=== PATIENT | female | born 1950 | race Caucasian/White ===

== ENCOUNTER 2018-08-05 14:22 | Inpatient (IN) | payer OTHER, MEDICARE ==
--- NOTE | 2018-08-05 15:30 | EDPHY ---
H & P Time Seen by Provider: 08/05/18 15:11 HPI/ROS: CHIEF COMPLAINT: abdominal pain, bloating, rectal bleeding HISTORY OF PRESENT ILLNESS: The patient is a 68-year-old female with a history of fibromyalgia, irritable bowel syndrome and celiac disease who presents emergency department with abdominal bloating and pain. Patient states she has been doing well on a special diet for the past 2 and half years. Last the patient had an MRI for facial pain. She was diagnosed with a "brain tumor. " She saw Dr. Murrell today and is scheduled for surgery next week. The patient feels that the a gadolinium on the MRI imaging caused her to have an upset bowel. Her symptoms started immediately after receiving the MRI evaluation. She describes moderate abdominal cramping. She has had bright red blood in the toilet and in her underwear. Patient denies fevers or chills. No nausea or vomiting. Patient states she is certain that the blood is from her rectum and not her vagina. REVIEW OF SYSTEMS: 10 systems were reveiwed and are negative with the exception of the elements mentioned in the history of present illness. Past Medical/Surgical History: Includes fibromyalgia, hypertension, migraine, celiac disease, irritable bowel syndrome Past surgical history: Endometrial ablation, orthopedic surgery Social history: Patient is . She does not smoke. Smoking Status: Never smoked Physical Exam: Vitals noted. 123/85, 110, 16, 97% on room air. 36.8 GENERAL: Well-appearing, in no acute distress, alert. HEENT: Eyes normal to inspection, normal pharynx, no signs of dehydration. NECK: Normal, supple. RESPIRATORY: Clear to auscultation bilaterally, no rales, rhonchi or wheezing. CVS: Regular rate and rhythm, no rubs, murmurs, or gallops. ABDOMEN: Soft, nontender, nondistended, no organomegaly. Benign BACK: Normal to inspection, no CVA tenderness. SKIN: Normal color, no rash, warm, dry. No pallor. EXTREMITIES: No pedal edema, no calf tenderness, no joint swelling. NEURO/PSYCH: Alert and oriented, normal mood and affect, normal motor sensory exam. Constitutional: Initial Vital Signs Temperature (C) 36.8 C 08/05/18 14:37 Heart Rate 110 H 08/05/18 14:37 Respiratory Rate 16 08/05/18 14:37 Blood Pressure 123/85 H 08/05/18 14:37 O2 Sat (%) 97 08/05/18 14:37 O2 Delivery Mode Room Air Allergies/Adverse Reactions: azithromycin [Azithromycin] Allergy (Intermediate, Verified 04/30/14 21:20) GI UPSET erythromycin base [Erythromycin Base] Allergy (Intermediate, Verified 04/30/14 21:20) GI UPSET amoxicillin [From Augmentin] Allergy (Verified 08/05/18 14:41) clavulanic acid [From Augmentin] Allergy (Verified 08/05/18 14:41) Iodinated Contrast- Oral and IV Dye Allergy (Verified 04/30/14 21:20) Unknown Nitrate Analogues Allergy (Verified 08/05/18 14:41) soy Allergy (Verified 08/05/18 14:41) citr Allergy (Uncoded 08/05/18 14:41) Home Medications: Medication Instructions Recorded Lisinopril [Prinivil] 20 mg PO HS 07/30/10 Inderal 20mg (RX) 04/30/14 Omeprazole 04/27/15 Medical Decision Making - Diagnostics Imaging Results: Imaging Impressions Abdomen/Pelvis CT 08/05/18 15:34 Impression: 1. Acute diverticulitis of the sigmoid colon, with possible underlying malignancy. Recommend colonoscopy once acute phase has resolved. 2. No bowel obstruction, perforation, or abscess. 3. Small indeterminate hypodensity left lobe of liver. Attention: This CT examination is specifically designed to evaluate patients who are clinically suspected of having acute obstructive uropathy. This examination does not use radiographic contrast, and as such, provides only a limited evaluation of the abdomen, pelvis and retroperitoneum. If there is further clinical suspicion for pathological conditions other than obstructive uropathy, a complete CT evaluation of the abdomen and pelvis utilizing intravenous, oral, and rectal contrast should be considered. Findings discussed with Emergency Department physician, Anne Marie Douglass M.D. , on August 05, 2018 at 1620. ED Course/Re-evaluation: In the emergency department I discussed possible etiologies with the patient. I answered all her questions. An IV was placed. Laboratory studies were obtained. The patient has CT that contrast of her abdomen pelvis. Patient does not want to received IV contrast. EKG: Sinus rhythm at 87. Left axis deviation. CBC is notable for mildly elevated white count of 10. Chemistry panel is notable for slightly low sodium. CT of the abdomen pelvis: Please refer the dictated report by Dr. Martinez. Patient has acute diverticulitis. There could be underlying malignancy. I discussed the results with the patient and . I answered all her questions. I discussed the case with Dr. Quick Patient states she has allergies to numerous antibiotics. The patient does not have a listed allergy to cefoxitin. Differential Diagnosis: My differential includes but is not limited to diverticulitis, mass, malignancy , mesenteric ischemia, anemia - Data Points Laboratory Results: Laboratory Results 08/05/18 15:03 08/05/18 15:03 08/05/18 08/05/18 08/05/18 15:03 15:03 15:03 WBC RBC Hgb Hct MCV MCH MCHC RDW Plt Count MPV Neut % (Auto) Lymph % (Auto) [place] % (Auto) Eos % (Auto) Baso % (Auto) Nucleat RBC Rel Count Absolute Neuts (auto) Absolute Lymphs (auto) Absolute Monos (auto) Absolute Eos (auto) Absolute Basos (auto) Absolute Nucleated RBC Immature Gran % Immature Gran # PT 12.1 SEC SEC (12.0-15.0) INR 0.93 (0.83-1.16) APTT 31.4 SEC SEC (23.0-38.0) Sodium 133 mEq/L L mEq/L (135-145) Potassium 4.3 mEq/L mEq/L (3.5-5.2) Chloride 100 mEq/L mEq/L (97-110) Carbon Dioxide 21 mEq/l L mEq/l (22-31) Anion Gap 12 mEq/L mEq/L (6-14) BUN 13 mg/dL mg/dL (7-23) Creatinine 0.7 mg/dL mg/dL (0.6-1.0) Estimated GFR > 60 Glucose 85 mg/dL mg/dL (70-100) Calcium 9.6 mg/dL mg/dL (8.5-10.4) Patient ABO/Rh Pending Antibody Screen Pending 08/05/18 15:03 WBC 10.25 10^3/uL H 10^3/uL (3.80-9.50) RBC 4.77 10^6/uL 10^6/uL (4.18-5.33) Hgb 14.3 g/dL g/dL (12.6-16.3) Hct 42.5 % % (38.0-47.0) MCV 89.1 fL fL (81.5-99.8) MCH 30.0 pg pg (27.9-34.1) MCHC 33.6 g/dL g/dL (32.4-36.7) RDW 13.7 % % (11.5-15.2) Plt Count 279 10^3/uL 10^3/uL (150-400) MPV 9.7 fL fL (8.7-11.7) Neut % (Auto) 69.9 % % (39.3-74.2) Lymph % (Auto) 19.6 % % (15.0-45.0) [place] % (Auto) 8.8 % % (4.5-13.0) Eos % (Auto) 1.1 % % (0.6-7.6) Baso % (Auto) 0.3 % % (0.3-1.7) Nucleat RBC Rel Count 0.0 % % (0.0-0.2) Absolute Neuts (auto) 7.17 10^3/uL H 10^3/uL (1.70-6.50) Absolute Lymphs (auto) 2.01 10^3/uL 10^3/uL (1.00-3.00) Absolute Monos (auto) 0.90 10^3/uL H 10^3/uL (0.30-0.80) Absolute Eos (auto) 0.11 10^3/uL 10^3/uL (0.03-0.40) Absolute Basos (auto) 0.03 10^3/uL 10^3/uL (0.02-0.10) Absolute Nucleated RBC 0.00 10^3/uL 10^3/uL (0-0.01) Immature Gran % 0.3 % % (0.0-1.1) Immature Gran # 0.03 10^3/uL 10^3/uL (0.00-0.10) PT INR APTT Sodium Potassium Chloride Carbon Dioxide Anion Gap BUN Creatinine Estimated GFR Glucose Calcium Patient ABO/Rh Antibody Screen Medications Given: Discontinued Medications Sodium Chloride (Ns) 500 mls @ 0 mls/hr IV EDNOW ONE; Wide Open PRN Reason: Protocol Stop: 04/03/19 15:34 Last Admin: 08/05/18 15:39 Dose: 500 mls Departure - Departure Disposition: Home, Routine, Self-Care Clinical Impression: Rectal bleeding Condition: Good
[2018-08-05] MEDS ORDERED: NS 500 ML IV ONE (15:33)
[2018-08-05 15:41] LABS: PLATELET COUNT 279 10^3/uL (150-400)
[2018-08-05 16:01] LABS: INR 0.93 (0.83-1.16); PROTIME(PATIENT) 12.1 SEC (12.0-15.0)
[2018-08-05] MEDS ORDERED: cefOXitin SODIUM 1 GM in NS 50 ML IV ONE (16:38)
[2018-08-05] MEDS ORDERED: HYDROCODONE/APAP 5/325 TAB PO PRN (17:13)
[2018-08-05] MEDS ORDERED: ONDANSETRON 4 MG/2 ML VIAL IVP PRN (17:13)
[2018-08-05] MEDS ORDERED: ONDANSETRON DISINTEGRATING 4 MG TAB PO PRN (17:13)
[2018-08-05] MEDS ORDERED: NS 1,000 ML IV SCH (17:15)
--- NOTE | 2018-08-05 17:32 | PDGENHP ---
History and Physical - Chief Complaint Bright red blood per rectum - History of Present Illness 68-year-old female with past medical history of IBS with constipation, recent diagnosis of meningioma, who presents to the emergency room complaints of 1 day of bright red blood per rectum. She says that last she had an MRI of her brain and that the gadolinium contrast immediately caused her severe gastrointestinal upset that started later night. Her GI upset continued through the weekend. She saw her primary care doctor who ruled out a urinary tract infection. She continued to feel bloated which she attributed to the gadolinium contrast. Starting yesterday evening she had multiple bowel movements consisting of mucus and bright red blood. She took pictures of this which she showed me in the emergency room. Her last bowel movement was approximately 3:00 a.m. This morning. She has some mild abdominal cramping but at this time denies overt abdominal pain. She has had some chills but denied any fevers. She denied any nausea or vomiting. She also saw mechanical shop laborer last week for evaluation of her multiple food allergies and IBS. Apparently the GI doc told her that he could not help for because he only treat people with actual diseases. She had a colonoscopy about 3 years ago which was normal. History Information - Allergies/Home Medication List Allergies/Adverse Reactions: azithromycin [Azithromycin] Allergy (Intermediate, Verified 04/30/14 21:20) GI UPSET erythromycin base [Erythromycin Base] Allergy (Intermediate, Verified 04/30/14 21:20) GI UPSET amoxicillin [From Augmentin] Allergy (Verified 08/05/18 14:41) clavulanic acid [From Augmentin] Allergy (Verified 08/05/18 14:41) Iodinated Contrast- Oral and IV Dye Allergy (Verified 04/30/14 21:20) Unknown Nitrate Analogues Allergy (Verified 08/05/18 14:41) soy Allergy (Verified 08/05/18 14:41) citr Allergy (Uncoded 08/05/18 14:41) Home Medications: Lisinopril [Prinivil] 20 mg PO HS 07/30/10 [Last Taken 06/23/12 21:00] Inderal 20mg (RX) 04/30/14 [Last Taken Unknown] Omeprazole 04/27/15 [Last Taken Unknown] I have personally reviewed and updated: family history, medical history, social history, surgical history - Past Medical History Additional medical history: Irritable bowel syndrome, multiple food allergies. Hypertension - Surgical History Additional surgical history: Cervical spine fusion - Family History Positive for: non-pertinent - Social History Smoking Status: Never smoked Alcohol Use: None Drug Use: None Review of Systems Review of Systems: ROS: 10pt was reviewed & negative except for what was stated in HPI & below Physical Exam Physical Exam: Temp Pulse Resp BP Pulse Ox 36.8 C 89 16 126/76 H 97 08/05/18 14:37 08/05/18 17:18 08/05/18 17:18 08/05/18 17:18 08/05/18 17:18 Constitutional: no apparent distress, appears nourished, not in pain Eyes: PERRL, anicteric sclera, EOMI Ears, Nose, Mouth, Throat: moist mucous membranes, hearing normal, ears appear normal, no oral mucosal ulcers Cardiovascular: regular rate and rhythym, no murmur, rub, or gallop, No edema Respiratory: no respiratory distress, no rales or rhonchi, clear to auscultation Gastrointestinal: normoactive bowel sounds, soft, non-tender abdomen, no palpable masses Genitourinary: no bladder fullness, no bladder tenderness Skin: warm, normal color, no rashes or abrasions, no fluctuance, no induration, No mottled Musculoskeletal: full muscle strength, no muscle tenderness, normal joint ROM, no joint effusions Psychiatric: interacting appropriately, not anxious, not encephalopathic, thought process linear Lymph, Heme, Immunologic: no cervical LAD, no supraclavicular LAD Lab Data & Imaging Review 08/05/18 15:03 08/05/18 15:03 WBC 10.25 10^3/uL (3.80-9.50) H 08/05/18 15:03 RBC 4.77 10^6/uL (4.18-5.33) 08/05/18 15:03 Hgb 14.3 g/dL (12.6-16.3) 08/05/18 15:03 Hct 42.5 % (38.0-47.0) 08/05/18 15:03 MCV 89.1 fL (81.5-99.8) 08/05/18 15:03 MCH 30.0 pg (27.9-34.1) 08/05/18 15:03 MCHC 33.6 g/dL (32.4-36.7) 08/05/18 15:03 RDW 13.7 % (11.5-15.2) 08/05/18 15:03 Plt Count 279 10^3/uL (150-400) 08/05/18 15:03 MPV 9.7 fL (8.7-11.7) 08/05/18 15:03 Neut % (Auto) 69.9 % (39.3-74.2) 08/05/18 15:03 Lymph % (Auto) 19.6 % (15.0-45.0) 08/05/18 15:03 [place] % (Auto) 8.8 % (4.5-13.0) 08/05/18 15:03 Eos % (Auto) 1.1 % (0.6-7.6) 08/05/18 15:03 Baso % (Auto) 0.3 % (0.3-1.7) 08/05/18 15:03 Nucleat RBC Rel Count 0.0 % (0.0-0.2) 08/05/18 15:03 Absolute Neuts (auto) 7.17 10^3/uL (1.70-6.50) H 08/05/18 15:03 Absolute Lymphs (auto) 2.01 10^3/uL (1.00-3.00) 08/05/18 15:03 Absolute Monos (auto) 0.90 10^3/uL (0.30-0.80) H 08/05/18 15:03 Absolute Eos (auto) 0.11 10^3/uL (0.03-0.40) 08/05/18 15:03 Absolute Basos (auto) 0.03 10^3/uL (0.02-0.10) 08/05/18 15:03 Absolute Nucleated RBC 0.00 10^3/uL (0-0.01) 08/05/18 15:03 Immature Gran % 0.3 % (0.0-1.1) 08/05/18 15:03 Immature Gran # 0.03 10^3/uL (0.00-0.10) 08/05/18 15:03 PT 12.1 SEC (12.0-15.0) 08/05/18 15:03 INR 0.93 (0.83-1.16) 08/05/18 15:03 APTT 31.4 SEC (23.0-38.0) 08/05/18 15:03 Sodium 133 mEq/L (135-145) L 08/05/18 15:03 Potassium 4.3 mEq/L (3.5-5.2) 08/05/18 15:03 Chloride 100 mEq/L (97-110) 08/05/18 15:03 Carbon Dioxide 21 mEq/l (22-31) L 08/05/18 15:03 Anion Gap 12 mEq/L (6-14) 08/05/18 15:03 BUN 13 mg/dL (7-23) 08/05/18 15:03 Creatinine 0.7 mg/dL (0.6-1.0) 08/05/18 15:03 Estimated GFR > 60 08/05/18 15:03 Glucose 85 mg/dL (70-100) 08/05/18 15:03 Calcium 9.6 mg/dL (8.5-10.4) 08/05/18 15:03 Patient ABO/Rh A NEGATIVE 08/05/18 15:03 Antibody Screen NEGATIVE 08/05/18 15:03 Assessment & Plan Assessment: 68-year-old female with past medical history of IBS admitted with bright red blood per rectum. Rectal bleeding- I reviewed the CT of her abdomen which shows a circumferential mass in her sigmoid colon along with surrounding edema. She has a white count and evidence of associated diverticulitis. I discussed the case with the emergency room physician. Gastroenterology has been consulted who will see the patient. She was given cefoxitin in the emergency room. Examination is benign -continue cefoxitin -NPO -GI to see -intravenous fluids Intestinal mass- CT scan of abdomen shows a circumferential mass in her sigmoid colon with her surrounding mesenteric edema. Concerning for malignancy. Gastroenterology has been consulted for further evaluation. Likely needs colonoscopy but likely will need infection treated prior to this. Continue antibiotics and await gastroenterology consultation. Meningioma- unable to review images, but MRI done last week with meningioma. Saw Dr. Murrell today, who, per her report, will take her for resection in about a month. Monitor for any neurological changes, and if any consult neurosurgery. Hypertension- takes propranolol and lisinopril for this. Blood pressure low normal in the emergency room. Continue inderal and lisinopril. Prophylaxis- SCDs, no heparin Fluids- intravenous saline Electrolytes-within normal limits Nutrition- NPO Cor- full Dispo- inpatient for diverticulitis and sigmoid mass.
--- NOTE | 2018-08-05 20:25 | CPEKG ---
Test Reason : OPEN Blood Pressure : / mmHG Vent. Rate : 087 BPM Atrial Rate : 087 BPM P-R Int : 166 ms QRS Dur : 098 ms QT Int : 392 ms P-R-T Axes : 059 -65 059 degrees QTc Int : 472 ms Sinus rhythm LAD, consider left anterior fascicular block Consider right ventricular hypertrophy Consider anterior infarct Confirmed by Steve Douglass ([id number]) on 08/05/2018 8:25:05 PM Referred By: STEVE DOUGLASS Confirmed By:Steve Douglass
[2018-08-05] MEDS: PROPRANOLOL HCL 10 MG TAB PO SCH (23:48)
--- NOTE | 2018-08-06 04:05 | GCON ---
[f rep st] CONSULTATION REFERRING PHYSICIAN: Azael Quick MD CHIEF COMPLAINT: Diverticulitis and bright red blood per rectum. HISTORY OF PRESENT ILLNESS: I have been asked to see this 68-year-old woman in consultation by Dr. Quick for evaluation of diverticulitis and questionable sigmoid mass. The patient does have a history of IBS-D. She struggles with constipation. She has recently undergone evaluation for headaches and was just found to have a meningioma. She had presented to the emergency department because over the last day she has been having increasing problems with abdominal pain and discomfort with difficulty passing stool. She had 1 day of passing bright red blood per rectum with mucus. She relates that when she had her MRI for evaluation of her meningioma, she was given gadolinium. This caused significant GI upset and abdominal discomfort. Symptoms continued throughout the week. She was seen by her primary care physician and a UTI was ruled out. She has been feeling abdominal bloating. She started having multiple bowel movements consisting of mucus and bright red blood per rectum. She had some mild abdominal cramping and discomfort. She also describes some chills without fevers. She had no nausea or vomiting. She has been seen by GI in the past, has multiple food allergies. She has been diagnosed with celiac disease and is on a gluten-free diet. She has had multiple colonoscopies in the past. The last colonoscopy was about 2-1/2 years ago. She reports she has had significant diverticulosis. PAST MEDICAL HISTORY: IBS-D, celiac disease, hypertension. PAST SURGICAL HISTORY: Cervical spine fusion. FAMILY HISTORY: Negative as it pertains to chief complaint. SOCIAL HISTORY: Nonsmoker, nondrinker. MEDICATIONS: Lisinopril, Inderal, and omeprazole. ALLERGIES: Azithromycin, erythromycin, amoxicillin, Augmentin, iodine, nitrates. REVIEW OF SYSTEMS: Negative for 10 systems other than mentioned in HPI. PHYSICAL EXAM: VITAL SIGNS: 36.8, pulse 89, respiratory rate 16, 127/76, pulse ox 97%. HEENT: Normocephalic, atraumatic. EOMI. NECK: Supple. No cervical adenopathy. No thyromegaly. Mucous membranes moist. LUNGS: Clear. CARDIAC: Normal S1, S2 without murmur. ABDOMEN: Soft with bowel sounds. Slight tenderness to palpation left lower quadrant. EXTREMITIES: Without clubbing, cyanosis, edema. NEURO: Nonfocal. SKIN: Warm and dry. PSYCH: Alert and oriented x3 with normal affect. LABORATORY DATA: White count 10.25, hemoglobin 14.2, hematocrit 42.5. PT of 12.1, INR of 31.4. CT scan of the abdomen: Acute diverticulitis of the sigmoid colon, and possible underlying sigmoid mass. No bowel obstruction. Otherwise unremarkable. IMPRESSION: A 68-year-old woman with clinical picture consistent with diverticulitis. The patient has undergone routine surveillance, routine colonoscopy. Last colonoscopy 2-1/2 years ago was normal. RECOMMENDATIONS: 1. IV antibiotics. Clear liquid diet. May advance to a low residue diet. 2. Would not proceed with colonoscopy until resolves from recurrent infection diverticulitis. We will follow with you. Thank you for allowing me to participate in the care of this patient. /[id number]/MODL MTDD
[2018-08-06 05:31] LABS: PLATELET COUNT 224 10^3/uL (150-400)
[2018-08-06 05:39] LABS: INR 0.97 (0.83-1.16); PROTIME(PATIENT) 12.5 SEC (12.0-15.0)
[2018-08-06] MEDS: cefOXitin SODIUM 2 GM in NS 100 ML IV SCH ×3 (06:06→17:04)
[2018-08-06] MEDS: PROPRANOLOL HCL 10 MG TAB PO SCH ×2 (08:17→20:45)
[2018-08-06] MEDS: LISINOPRIL 20 MG TAB PO SCH (08:18)
--- NOTE | 2018-08-06 09:21 | HOSPPROG ---
Hospitalist Progress Note Assessment/Plan: DIAGNOSES: * Acute Diverticulitis with abdominal pain; known diverticulosis, last endoscopy 2 yrs ago * IBS-D * Meningioma with headaches * celiac dz on gluten free diet The radiologist has raise question of possible malignancy in the sigmoid colon based on CT. This CT scan was not does signed as a CT colonoscopy. It is not terribly specific or sensitive forward defining a colon mass. She has had several colonoscopies most recently a CT colonoscopy 2 years ago. She has never had any malignancies or polyps per her description. PLANS: * It is time she may eat but I recommended a low fiber high fluids diet * Continue antibiotics * I will review further with Dr. Ingram The patient had many questions and I reviewed all of these and answered them in detail with her at the bedside today. She also wished to look at her CT images and so I reviewed her CT images at the bedside with her in detail. SUBJECTIVE: Still with pain lower abdomen, no nausea vomiting, no more bleeding noted Does have migraine headache this morning OBJECTIVE Vitals reviewed: Stable without fever Exam: alert oriented skin warm dry color ok resps not labored lungs clear BSs heart regular abd soft nondistended nontender, bowel sounds present limbs warm, no edema iv site ok Lab data: Improvement in sodium otherwise stable basic met panel White blood cell count proved to 5000 otherwise stable CBC Imaging data: I reviewed the images from her CT scan abdomen and I agree that there is a notable diverticulosis and some typical inflammatory changes of diverticulitis in the sigmoid colon without any evidence of perforation or abscess. I am not certain what the radiologist is concerned with that raises a question of malignancy in the sigmoid, other than that in the area of diverticulitis there is some thickening of the bowel wall which I believe is probably part of the diverticulitis process. Objective: Vital Signs Temp Pulse Resp BP Pulse Ox 36.6 C 71 12 96/76 L 95 08/06/18 07:59 08/06/18 08:17 08/06/18 07:59 08/06/18 08:18 08/06/18 07:59 Laboratory Results 08/06/18 05:06 08/06/18 05:06 08/05/18 08/06/18 08/07/18 06:59 06:59 06:59 Intake Total 750 Output Total 300 Balance 450 PT 12.5 SEC (12.0-15.0) 08/06/18 05:06 INR 0.97 (0.83-1.16) 08/06/18 05:06 - Time Spent With Patient Time Spent with Patient: greater than 35 minutes Time Spent with Patient: Greater than 35 minutes spent on this patients care, greater than 50% of time spent counseling, educating, and coordinating care regarding the above mentioned plan. ICD10 Worksheet Patient Problems: Problems Problem Status Onset Rectal bleeding Acute
--- NOTE | 2018-08-06 11:24 | ASMTCMCOM ---
CM Note CM Note Notes: Pts case discussed with Dr. Lo. Pt is a 68 y/o female admitted for diverticulitis and GI bleed. Pt will most likely d/c independent when medically stable. No therapies ordered at this time. CM available for changes. Plan: Independent Date Signed: 08/06/2018 11:24 AM Electronically Signed By:PHIL Gan
--- NOTE | 2018-08-06 11:25 | SOAPPROG ---
SOAP Progress Note Assessment/Plan: Assessment: Diverticulitis clinically improving on antibiotics. Patient has had several colonoscopies. Last colonoscopy was 2 1/2 years ago. Plan: 1. Continue on antibiotics. Can switch to PO antibiotics 2. Follow up with GI after discharge 3. Will need to wait at least six weeks post treatment of diverticulitis prior to proceeding with colonoscopy. 4. Low fiber diet for one to two weeks 08/06/18 11:31 Subjective: CC: Abdominal pain, diverticulitis Feeling much better, pain significantly improved Objective: Vital Signs Temp Pulse Resp BP Pulse Ox 36.6 C 71 12 96/76 L 95 08/06/18 07:59 08/06/18 08:17 08/06/18 07:59 08/06/18 08:18 08/06/18 07:59 Laboratory Results 08/06/18 05:06 08/06/18 05:06 08/05/18 08/06/18 08/07/18 05:59 05:59 05:59 Intake Total 750 Output Total 300 700 Balance 450 -700 PT 12.5 SEC (12.0-15.0) 08/06/18 05:06 INR 0.97 (0.83-1.16) 08/06/18 05:06 Generic Name Dose Route Start Last Admin Trade Name Freq PRN Reason Stop Dose Admin Acetaminophen 650 mg 08/05/18 17:13 Tylenol PO 02/01/19 17:12 Q4HRS PRN Pain, Mild/Fever, Can Take PO Hydrocodone Bitart/Acetaminophen 1 - 2 tab 08/05/18 17:13 [place] 5/325 PO 08/15/18 17:12 Q4HRS PRN Pain, Moderate Able to Take PO Sodium Chloride 1,000 mls @ 75 mls/hr 08/05/18 17:15 08/06/18 06:07 Ns IV 02/01/19 17:14 1,000 mls CONT CAMPOS Administration Cefoxitin Sodium 2 gm/ Sodium 100 mls @ 200 mls/hr 08/06/18 06:00 08/06/18 11 :24 Chloride IV 09/05/18 05:59 100 mls Q6HRS CAMPOS Administration Protocol Lisinopril 20 mg 08/06/18 09:00 08/06/18 08:18 Zestril PO 02/02/19 08:59 20 mg DAILY CAMPOS Administration Morphine Sulfate 1 - 2 mg 08/05/18 17:13 Morphine IVP 08/15/18 17:12 Q1HR PRN Pain, Severe Unable to Take PO Ondansetron HCl 4 mg 08/05/18 17:13 Zofran IVP 02/01/19 17:12 Q4HRS PRN Nausea/Vomiting, Can't Take PO Ondansetron HCl 4 mg 08/05/18 17:13 Zofran Odt PO 02/01/19 17:12 Q4HRS PRN Nausea/Vomiting, Use 1st Propranolol HCl 10 mg 08/05/18 23:45 08/06/18 08:17 Inderal PO 02/01/19 23:44 10 mg BID CAMPOS Administration Discontinued Medications Generic Name Dose Route Start Last Admin Trade Name Freq PRN Reason Stop Dose Admin Sodium Chloride 500 mls @ 0 mls/hr 08/05/18 15:33 08/05/18 15:39 Ns IV 08/05/18 15:34 500 mls EDNOW ONE Administration Protocol Wide Open Cefoxitin Sodium 1 gm/ Sodium 50 mls @ 200 mls/hr 08/05/18 16:38 08/05/18 17: 12 Chloride IV 08/05/18 16:52 50 mls EDNOW ONE Administration Protocol Physical Exam - Physical Exam General Appearance: alert, no apparent distress Respiratory: lungs clear, normal breath sounds Cardiac/Chest: regular rate, rhythm Abdomen: normal bowel sounds, non-tender, soft Skin: normal color, warm/dry Neuro/Psych: alert, normal mood/affect, oriented x 3 ICD10 Worksheet Patient Problems: Problems Problem Status Onset Rectal bleeding Acute
--- NOTE | 2018-08-06 12:17 | PDMN ---
Medical Necessity Medical necessity: Pt meets IP criteria per MD & MCG M-150; est los >2 mn for eval/tx of acute diverticulitis w/rectal bleeding & intestinal mass concerning for malignancy; admit for further workup/monitoring, NPO status, IVFs, IV abx & GI consult; hx IBS, recently diagnosed meningioma w/headaches; per H&P & order
[2018-08-06] MEDS: ACETAMINOPHEN 325 MG TAB PO PRN (17:03)
[2018-08-06] MEDS ORDERED: RIZATRIPTAN BENZOATE 5 MG PO PRN ×2 (17:35→18:00)
[2018-08-07] MEDS: cefOXitin SODIUM 2 GM in NS 100 ML IV SCH ×4 (00:10→17:47)
[2018-08-07] MEDS: PROPRANOLOL HCL 10 MG TAB PO SCH ×2 (08:11→20:45)
[2018-08-07] MEDS: LISINOPRIL 20 MG TAB PO SCH (08:12)
--- NOTE | 2018-08-07 11:11 | SOAPPROG ---
SOAP Progress Note Assessment/Plan: Assessment: Diverticulitis clinically improved. Patient brought in records and last screening test was VC. Report was from 2015. Tortuous colon with scattered diverticula. No polyps or masses. Plan: 1. Can switch to PO antibiotics. Continue on antibiotics. Can switch to PO antibiotics 2. Low residue diet x 1 - 2 weeks 3. Follow up office after completing ofof antibiotics. 3. Colonoscopy in 6 - 8 weeks, Will need propofol. 08/07/18 11:01 Subjective: CC: Diverticulitis Feeling better. Having some constipation. Objective: Vital Signs Temp Pulse Resp BP Pulse Ox 36.8 C 67 16 117/73 95 08/07/18 07:58 08/07/18 08:11 08/07/18 07:58 08/07/18 08:12 08/07/18 07:58 Laboratory Results 08/06/18 05:06 08/06/18 05:06 08/06/18 08/07/18 08/08/18 05:59 05:59 05:59 Intake Total 750 900 Output Total 300 2500 Balance 450 -1600 PT 12.5 SEC (12.0-15.0) 08/06/18 05:06 INR 0.97 (0.83-1.16) 08/06/18 05:06 Generic Name Dose Route Start Last Admin Trade Name Freq PRN Reason Stop Dose Admin Acetaminophen 650 mg 08/05/18 17:13 08/06/18 17:03 Tylenol PO 02/01/19 17:12 650 mg Q4HRS PRN Administration Pain, Mild/Fever, Can Take PO Hydrocodone Bitart/Acetaminophen 1 - 2 tab 08/05/18 17:13 [place] 5/325 PO 08/15/18 17:12 Q4HRS PRN Pain, Moderate Able to Take PO Sodium Chloride 1,000 mls @ 75 mls/hr 08/05/18 17:15 08/06/18 06:07 Ns IV 02/01/19 17:14 1,000 mls CONT CAMPOS Administration Cefoxitin Sodium 2 gm/ Sodium 100 mls @ 200 mls/hr 08/06/18 06:00 08/07/18 05 :27 Chloride IV 09/05/18 05:59 100 mls Q6HRS CAMPOS Administration Protocol Lisinopril 20 mg 08/06/18 09:00 08/07/18 08:12 Zestril PO 02/02/19 08:59 20 mg DAILY CAMPOS Administration Miscellaneous Medication 5 mg 08/06/18 18:00 Rizatriptan Benzoate [Rizatriptan] PO ONCE PRN MIGRAINE/HEADACHE Morphine Sulfate 1 - 2 mg 08/05/18 17:13 Morphine IVP 08/15/18 17:12 Q1HR PRN Pain, Severe Unable to Take PO Ondansetron HCl 4 mg 08/05/18 17:13 Zofran IVP 02/01/19 17:12 Q4HRS PRN Nausea/Vomiting, Can't Take PO Ondansetron HCl 4 mg 08/05/18 17:13 Zofran Odt PO 02/01/19 17:12 Q4HRS PRN Nausea/Vomiting, Use 1st Propranolol HCl 10 mg 08/05/18 23:45 08/07/18 08:11 Inderal PO 02/01/19 23:44 10 mg BID CAMPOS Administration Discontinued Medications Generic Name Dose Route Start Last Admin Trade Name Freq PRN Reason Stop Dose Admin Sodium Chloride 500 mls @ 0 mls/hr 08/05/18 15:33 08/05/18 15:39 Ns IV 08/05/18 15:34 500 mls EDNOW ONE Administration Protocol Wide Open Cefoxitin Sodium 1 gm/ Sodium 50 mls @ 200 mls/hr 08/05/18 16:38 08/05/18 17: 12 Chloride IV 08/05/18 16:52 50 mls EDNOW ONE Administration Protocol Miscellaneous Medication 5 mg 08/06/18 17:35 Rizatriptan Benzoate [Rizatriptan] PO ONCE PRN MIGRAINE/HEADACHE Physical Exam - Physical Exam General Appearance: alert, no apparent distress Respiratory: lungs clear, normal breath sounds Abdomen: soft, other (tender to deep plapation on the LLQ) Skin: normal color, warm/dry Neuro/Psych: alert, normal mood/affect, oriented x 3 ICD10 Worksheet Patient Problems: Problems Problem Status Onset Rectal bleeding Acute
--- NOTE | 2018-08-07 11:20 | HOSPPROG ---
Hospitalist Progress Note Assessment/Plan: DIAGNOSES: * Acute Diverticulitis with abdominal pain; known diverticulosis, last endoscopy 2 yrs ago * IBS-D * Meningioma with headaches * celiac dz on gluten free diet The radiologist has raise question of possible malignancy in the sigmoid colon based on CT. This CT scan was not does signed as a CT colonoscopy. It is not terribly specific or sensitive forward defining a colon mass. She has had several colonoscopies most recently a CT colonoscopy 2 years ago. She has never had any malignancies or polyps per her description. Her has brought in images from her recent CT colonoscopy which I reviewed with Dr. Ingram and does not show any sign of malignancy or other concerning abnormalities At this time the patient is medically stable to go home. However she tells us that she is unable to take any kind of medication in tablets due to severe side effects from the inactive ingredients on all of them and that she has had enough trouble taking capsules that she feels that she needs to have a trial of taking her oral antibiotics in capsule form here before going home to ensure that she will tolerate them well enough. She states that citrate, nitrates, and any swiped products are not going to work for her PLANS: * It is time she may eat but I recommended a low fiber high fluids diet * Trial of oral antibiotics * I have reviewed in detail with Dr. Ingram today Had very long conversation with the patient and at the bedside related to her dietary restrictions and medication restrictions that she feels she needs due to side effects from both SUBJECTIVE: Has intermittent abdominal pain with some movements otherwise no pain, no nausea vomiting, no chills Had a bowel movement yesterday Is eating apparently without difficulty so far but very bothered by the restrictions we have placed and in her diet on top of the restrictions she places on her diet on her own for chronic reasons OBJECTIVE Vitals reviewed: Stable without fever Exam: alert oriented skin warm dry color ok resps not labored lungs clear BSs heart regular abd soft nondistended nontender, bowel sounds present limbs warm, no edema iv site ok Imaging data: I reviewed the images from her CT scan abdomen and I agree that there is a notable diverticulosis and some typical inflammatory changes of diverticulitis in the sigmoid colon without any evidence of perforation or abscess. I am not certain what the radiologist is concerned with that raises a question of malignancy in the sigmoid, other than that in the area of diverticulitis there is some thickening of the bowel wall which I believe is probably part of the diverticulitis process. Objective: Vital Signs Temp Pulse Resp BP Pulse Ox 36.8 C 67 16 117/73 95 08/07/18 07:58 08/07/18 08:11 08/07/18 07:58 08/07/18 08:12 08/07/18 07:58 Laboratory Results 08/06/18 05:06 08/06/18 05:06 08/06/18 08/07/18 08/08/18 06:59 06:59 06:59 Intake Total 750 900 Output Total 300 2500 Balance 450 -1600 PT 12.5 SEC (12.0-15.0) 08/06/18 05:06 INR 0.97 (0.83-1.16) 08/06/18 05:06 - Time Spent With Patient Time Spent with Patient: greater than 35 minutes Time Spent with Patient: Greater than 35 minutes spent on this patients care, greater than 50% of time spent counseling, educating, and coordinating care regarding the above mentioned plan. ICD10 Worksheet Patient Problems: Problems Problem Status Onset Rectal bleeding Acute
[2018-08-07] MEDS ORDERED: metroNIDAZOLE 250 MG TAB PO SCH (16:00)
[2018-08-08] MEDS: cefOXitin SODIUM 2 GM in NS 100 ML IV SCH ×3 (00:32→13:20)
[2018-08-08] MEDS: LISINOPRIL 20 MG TAB PO SCH (09:24)
[2018-08-08] MEDS: PROPRANOLOL HCL 10 MG TAB PO SCH ×2 (09:25→22:30)
--- NOTE | 2018-08-08 11:34 | HOSPPROG ---
Hospitalist Progress Note Assessment/Plan: 68 yo F mild diverticulitis, possible sigmoid mass, multiple drug intolerances, meningioma diverticulitis: improving on cefoxitin exam unremarkable searching for po options- amenable to amoxicillin/flagyl, a bit of work to be done drug intolerances: has GI upset to fillers in pills has done well w amoxicillin there is a flagyl capsule- she tolerates capsules- but not covered by insurance pharmacy to research and discuss w her meningioma: anxious that flagyl could cause seizure as this is an ADR requesting neuro consult- they will see sigmoid mass: outpt follow up plan in place dispo: inpt Subjective: case d/w Dr. Martinez. feeling better, eating Objective: Vital Signs Temp Pulse Resp BP Pulse Ox 36.8 C 77 14 120/85 H 97 08/08/18 08:00 08/08/18 09:25 08/08/18 08:00 08/08/18 09:25 08/08/18 08:00 Laboratory Results 08/06/18 05:06 08/06/18 05:06 08/07/18 08/08/18 08/09/18 05:59 05:59 05:59 Intake Total 900 1000 Output Total 2500 3000 Balance -1600 -2000 PT 12.5 SEC (12.0-15.0) 08/06/18 05:06 INR 0.97 (0.83-1.16) 08/06/18 05:06 - Physical Exam Constitutional: no apparent distress, appears nourished Eyes: PERRL, anicteric sclera Ears, Nose, Mouth, Throat: moist mucous membranes, hearing normal Cardiovascular: regular rate and rhythym, no murmur, rub, or gallop Respiratory: no respiratory distress, no rales or rhonchi Gastrointestinal: normoactive bowel sounds, soft, non-tender abdomen Genitourinary: no bladder fullness, No brooke in urethra Skin: warm, normal color Musculoskeletal: full muscle strength ICD10 Worksheet Patient Problems: Problems Problem Status Onset Rectal bleeding Acute
--- NOTE | 2018-08-08 14:57 | GCON ---
[f rep st] CONSULTATION DATE OF CONSULTATION: 08/08/2018 REFERRING PHYSICIAN: Jose Morton MD CHIEF COMPLAINT: Questions about and Flagyl and possible neurotoxicity. HISTORY OF PRESENT ILLNESS: Ms. Paez is a very pleasant 68-year-old lady who is in the hospital for diverticulitis, followed by Dr. Hill along with Hospital Medicine. She is improving from that regard and has been recommended to go on Flagyl and amoxicillin as an outpatient for ongoing treatment of this condition. In the background, the patient recently presented with some left-sided facial pain and was found to have an anterior right sphenoid wing meningioma without any significant mass effect. There was some minimal displacement of the adjacent right frontal lobe operculum. Certainly, this may be causing her symptoms. In any case, she is following with Dr. Chuck Murrell of [facility] and is planning to have surgical resection at the end of the month. The patient then looked up Flagyl on the Internet and read reports about neurotoxicity and possible seizures and became concerned and requested a neurologic consultation. The patient has not had any seizures with the presentation or meningioma. She has not had a seizure in her lifetime. Outside of the meningioma she has no other epilepsy risk factors. We reviewed all the available literature. The overall prevalence of PHARMACEUTICAL SCIENTIST toxicity related to Flagyl is not clear. It tends to be an uncommon side effect. These side effects can occur peripheral neuropathy, cerebellar toxicity , encephalopathy and seizures. In meta-analysis of case reports, it appears around 13-15% of PHARMACEUTICAL SCIENTIST side effects are convulsive seizures. REVIEW OF SYSTEMS: A 10-point review of systems was done and only pertinent to the HPI. For past medical history, social history, family history, home medications, and allergies, see Dr. Quick's initial note. PHYSICAL EXAM: VITAL SIGNS: Blood pressure is 120/85, afebrile at 36.8, heart rate 60s 70s. GENERAL: She is very pleasant, awake, alert. No aphasia. NEUROLOGIC: Cranial nerve exam shows symmetric facial expressions and normal extraocular movements. There is no obvious focal weakness or convulsive movements in my presence. IMPRESSION/PLAN: 1. Right sphenoid wing meningioma. 2. Diverticulitis. Essentially, the consultation today was entirely related to reviewing literature with the patient regarding Flagyl and PHARMACEUTICAL SCIENTIST side effects. She understands that there is a small but well reported risk of PHARMACEUTICAL SCIENTIST toxicity including seizures. She also understands that she may be at higher risk for a seizure than the general population with a focal meningioma present. We also reviewed the literature that once Flagyl is discontinued prognosis is good, in terms of recovery from neurologic toxicity. Because the patient is concerned, I have recommended she not drive while on this antibiotic. She is agreeable. She will also practice seizure precautions. Ultimately, I defer to GI and hospital medicine regarding their antimicrobial treatment choice. No further recommendations. She will follow up with Dr. Murrell as an outpatient. Please do not hesitate to call if there are any questions or changes in this patient's neurologic status. Fifty total minutes floor time; over 25% in direct counseling with the patient and coordination of care. We will sign off and follow up as needed. /[id number]/MODL MTDD
[2018-08-08] MEDS: metroNIDAZOLE 500 MG TAB PO SCH ×2 (16:29→22:07)
[2018-08-09] MEDS: ACETAMINOPHEN 325 MG TAB PO PRN ×2 (05:56→12:19)
[2018-08-09] MEDS: metroNIDAZOLE 500 MG TAB PO SCH ×2 (07:09→14:19)
[2018-08-09 08:22] VITALS: BP 104/72
[2018-08-09] MEDS: PROPRANOLOL HCL 10 MG TAB PO SCH (09:14)
[2018-08-09] MEDS: LISINOPRIL 20 MG TAB PO SCH (09:14)
--- NOTE | 2018-08-09 10:33 | ASMTCMCOM ---
CM Note CM Note Notes: Pts case reviewed and spoke to Dr. Martinez. Pt will d/c without any needs when medically stable. CM available for changes. Plan: Independent Date Signed: 08/09/2018 10:32 AM Electronically Signed By:PHIL Gan
--- NOTE | 2018-08-09 11:06 | HOSPPROG ---
Hospitalist Progress Note Assessment/Plan: 68 yo F mild diverticulitis, possible sigmoid mass, multiple drug intolerances, meningioma diverticulitis: improving transitioned to amox/flagyl yesterday. she is having some vague sx that she attributes to flagyl but is amenable to continuing amox/flagyl drug intolerances: has GI upset to fillers in pills see above pharmacy to research and discuss w her meningioma: anxious that flagyl could cause seizure as this is an ADR requesting neuro consult- they will see sigmoid mass: outpt follow up plan in place dispo: she is medically ready to leave hospital today although she believes her situation warrants an additional day pf observation in the hospital I have written a provisional discharge order for dc after 2 pm dose of abx > 30 minutes Subjective: case d/w dr burleson. some "nerve pain" sx that resolved w tylenol Objective: Vital Signs Temp Pulse Resp BP Pulse Ox 36.6 C 73 14 104/72 96 08/09/18 08:00 08/09/18 08:00 08/09/18 08:00 08/09/18 08:00 08/09/18 08:00 Laboratory Results 08/06/18 05:06 08/06/18 05:06 08/08/18 08/09/18 08/10/18 05:59 05:59 05:59 Intake Total 1000 1250 Output Total 3000 1400 900 Balance -2000 -1400 350 PT 12.5 SEC (12.0-15.0) 08/06/18 05:06 INR 0.97 (0.83-1.16) 08/06/18 05:06 - Physical Exam Constitutional: no apparent distress, appears nourished Eyes: PERRL, anicteric sclera Ears, Nose, Mouth, Throat: moist mucous membranes, hearing normal Cardiovascular: regular rate and rhythym, no murmur, rub, or gallop Respiratory: no respiratory distress, no rales or rhonchi Gastrointestinal: normoactive bowel sounds, soft, non-tender abdomen Genitourinary: no bladder fullness, No brooke in urethra Skin: warm, normal color Musculoskeletal: full muscle strength ICD10 Worksheet Patient Problems: Problems Problem Status Onset Rectal bleeding Acute
--- NOTE | 2018-08-09 14:05 | GDS ---
[f rep st] DISCHARGE SUMMARY DISCHARGE DIAGNOSES: 1. Mild diverticulitis. 2. Suspected sigmoid mass. 3. History of meningioma. 4. Irritable bowel syndrome, with constipation. HISTORY OF PRESENT ILLNESS: Please see admission history and physical by Dr. Azael Quick. HOSPITAL COURSE: The patient presented with lower abdominal pain and bright red blood per rectum. C T scan showed diverticulitis, with possible mass. This was reviewed with GI, who saw her in consulta tions, and felt this was more likely just to be evidence of diverticulitis. She was initiated on cef uroxime, as this is a case of mild diverticulitis. The patient has been tolerating an oral diet with out fever for a number of days. She has numerous oral antibiotic intolerances, with vague symptoms such as abdominal pain or nerve pa in. She was concerned about having a seizure because it is listed as a side effect of Flagyl. Neuro logy saw her and reassured her that the likelihood of seizure is low. She does tolerate amoxicillin. She has been on oral antibiotics for 24 hours at this point in time. She did have an episode of in ner thigh pain, which she describes as aching, and it resolved with Tylenol. She attributes this to the Flagyl and its nerve impact. It is not clear that this is nerve-related pain. I believe the patient is safe for discharge. I have written a conditional discharge order to be disc harged after her 2 p.m. dose of oral antibiotics. Prescriptions were sent to Pharmacy. /[id number]/MODL
== END 2018-08-09 16:55 | disposition home or self-care (01) | DRG 379 ==
LOC: OBSVTOIN 17:19 → F3E 17:21
PROVIDERS: ADMIT Internal Medicine; ATTEND Internal Medicine
DX: K57.33 Diverticulitis of large intestine without perforation or abscess with bleeding (principal); E86.9 Volume depletion, unspecified; D37.4 Neoplasm of uncertain behavior of colon; K58.1 Irritable bowel syndrome with constipation; D32.9 Benign neoplasm of meninges, unspecified; I10 Essential (primary) hypertension
CPT/HCPCS: J0694

== ENCOUNTER 2018-10-15 05:16 | Inpatient (IN) | payer OTHER, MEDICARE | END 2018-10-17 14:37 | disposition home health service (06) | LOC: F3N 05:16 → F2N 07:41 → F3N 10-16 13:35 → F2N 12:12 ==